=== PATIENT | female | born 1940 | race Two or more races ===

== ENCOUNTER 2024-12-01 18:22 | Inpatient (IN) | payer MEDICAID, MEDICARE ==
[2024-12-01 18:31] VITALS: BP 134/77; TEMP 98.1; O2SAT 99
[2024-12-01 19:47] VITALS: BP 171/78; TEMP 99.7; O2SAT 99
[2024-12-01] MEDS ORDERED: ACETAMINOPHEN 325 MG TABLET PO PRN (20:00)
[2024-12-01] MEDS ORDERED: REMEDY ESSENTIAL ZINC PASTE 113 GM TP PRN (20:00)
[2024-12-01] MEDS ORDERED: ONDANSETRON 4 MG/2 ML VIAL IV PRN (20:00)
[2024-12-01] MEDS: OLANZAPINE 10 MG VIAL IM ONE ×2 (20:22→20:30)
[2024-12-01] MEDS: IV NS 1000 ML 1,000 ML IV PRN (22:06)
[2024-12-01] MEDS: QUETIAPINE FUMARATE 25 MG TABLET PO PRN (22:32)
[2024-12-02] VITALS (7 sets, daily range): BP systolic 129–178; BP diastolic 55–82; TEMP 97.7–98.6; O2SAT 94–99
[2024-12-02 05:28] LABS: *BILIRUBIN,URIN NEGATIVE (NEGATIVE); *BLOOD, URINE NEGATIVE (NEGATIVE); *CLARITY,URINE CLEAR (CLEAR); *COLOR,URINE YELLOW (YELLOW); *KETONES,URINE 1+ (NEGATIVE); *PROTEIN,URINE NEGATIVE (NEGATIVE); *UROBILINOGEN,URINE 0.2 E.U./dl (NORMAL); LEUKOCYTE ESTERASE ,URINE NEGATIVE (NEGATIVE); NITRITE, URINE NEGATIVE (NEGATIVE); UGLUCOSE NEGATIVE (NEGATIVE)
[2024-12-02 05:36] LABS: SQUAMOUS EPITHELIAL CELL,UR FEW /HPF (NONE SEEN)
[2024-12-02] MEDS: PANTOPRAZOLE SODIUM 40 MG TABLET.DR PO SCH (06:21)
[2024-12-02 06:51] LABS: PLATELET COUNT (AUTO) 211 K/uL (179-408); RED BLOOD CELL COUNT(AUTO) 4.11 MIL/uL (3.63-4.92); RED CELL DISTRIBUTION WIDTH 13.8 % (12.3-17.7); WHITE BLOOD COUNT (AUTO) 6.5 K/uL (3.8-11.8)
[2024-12-02 07:33] LABS: CREATININE 0.6 mg/dL (0.6-1.3); SODIUM SERUM 143 mmol/L (136-145); UREA NITROGEN, BLOOD 8 mg/dL (7-18)
[2024-12-02] MEDS: POTASSIUM CHLORIDE 50 ML IV SCH (08:33)
[2024-12-02] MEDS: METOPROLOL SUCCINATE XL 50 MG TAB.SR.24H PO SCH (09:53)
[2024-12-02] MEDS: LOSARTAN POTASSIUM 50 MG TABLET PO SCH (09:53)
[2024-12-02] MEDS: OLANZAPINE 10 MG VIAL IM ONE (10:56)
[2024-12-02] MEDS ORDERED: POTASSIUM CHLORIDE 50 ML IV SCH (12:15)
[2024-12-03 00:30] VITALS: BP 195/100; TEMP 99.9
[2024-12-03 00:45] VITALS: BP 158/96; TEMP 98.6; O2SAT 95
[2024-12-03] MEDS: LORAZEPAM 2 MG/1 ML VIAL IV ONE (04:44)
[2024-12-03 04:55] VITALS: BP 104/68; TEMP 98.3; O2SAT 96
[2024-12-03 07:09] LABS: PLATELET COUNT (AUTO) 230 K/uL (179-408); RED BLOOD CELL COUNT(AUTO) 4.40 MIL/uL (3.63-4.92); RED CELL DISTRIBUTION WIDTH 13.8 % (12.3-17.7); WHITE BLOOD COUNT (AUTO) 8.2 K/uL (3.8-11.8)
[2024-12-03 07:32] LABS: ASPARTATE AMINOTRANSFERASE 13.0 U/L (15-37); TOTAL PROTEIN, SERUM 6.8 g/dL (6.4-8.2)
[2024-12-03 08:00] VITALS: BP 117/69; TEMP 97.6; O2SAT 95
[2024-12-03] MEDS: DIVALPROEX SPRINKLE 125 MG CAP.SPRINK PO SCH (08:37)
[2024-12-03 11:56] VITALS: BP 119/84; TEMP 97.8; O2SAT 96
== END 2024-12-03 16:55 | disposition home health service (06) | DRG 82 ==
LOC: TELE3 18:23
PROVIDERS: ADMIT Nurse Practitioner Acute Care; ATTEND Nurse Practitioner Acute Care
DX: S06.5XAA Traumatic subdural hemorrhage with loss of consciousness status unknown, initial encounter (principal); G93.41 Metabolic encephalopathy; F03.C2 Unspecified dementia, severe, with psychotic disturbance; I48.92 Unspecified atrial flutter; D68.59 Other primary thrombophilia; I48.0 Paroxysmal atrial fibrillation; Z78.1 Physical restraint status; S60.221A Contusion of right hand, initial encounter; W18.30XA Fall on same level, unspecified, initial encounter; Y92.008 Other place in unspecified non-institutional (private) residence as the place of occurrence of the external cause; Z79.01 Long term (current) use of anticoagulants; I10 Essential (primary) hypertension
CPT/HCPCS: 36415; 70450; 83735; 84100; 84443; 85025; 93005; C1758; G0378; J2060; J2358; J3480; J7040